=== PATIENT | male | born 1940 | race Two or more races ===

== ENCOUNTER 2019-09-27 12:06 | Outpatient (CLI) | payer OTHER | END 2019-09-27 12:12 | disposition home or self-care (01) | LOC: LAB 12:06 | DX: N20.0 Calculus of kidney (principal) ==

== ENCOUNTER → 2019-09-30 | Outpatient (CLI) | payer OTHER | END | disposition home or self-care (01) | LOC: RAD 07:43 | DX: R63.4 Abnormal weight loss (principal); R10.13 Epigastric pain; R10.33 Periumbilical pain; R13.0 Aphagia | CPT/HCPCS: 72196; 74182; 74230; A9575; 72197; 74183 ==